=== PATIENT | female | born 1955 | race Caucasian/White ===

== ENCOUNTER 2021-06-14 21:48 | Emergency (ER) | payer MEDICAID ==
[~2021-06-14] VITALS: Ht 154.9 cm; Wt 70.3 kg
--- NOTE | 2021-06-14 22:36 | NUR ---
BIB FAMILY COMPLAINING OF CHRONIC SCIATICA PAIN L . PT TAKES TRAMADOL FOR PAIN AT HOME. STATES SHE IS UNABLE TO AMBULATE DUE TO PAIN. VITAL SIGNS STABLE MD WAS AT BEDSIDE FOR MADHU. Addendum: 06/14/21 at 2305 by KDABBAGHIA PAIN TO L LOWER EXTREMITY PAIN
[2021-06-14] MEDS ORDERED: CARISOPRODOL 350 MG TABLET ONE (22:46)
[2021-06-14] MEDS ORDERED: DEXAMETHASONE SOD PHOSPHATE 10 MG/ML VIAL ONE (22:46)
[2021-06-14] MEDS ORDERED: KETOROLAC TROMETHAMINE INJ 60 MG/2 ML VIAL IM ONE ×2 (22:46→23:00)
[2021-06-14] MEDS ORDERED: CARISOPRODOL 350 MG TABLET PO ONE (23:00)
[2021-06-14] MEDS ORDERED: DEXAMETHASONE SOD PHOSPHATE 4 MG/ML VIAL IM ONE (23:00)
[2021-06-14] MEDS ORDERED: ONDA4TAB5 PO (23:21)
[2021-06-14] MEDS ORDERED: MORPHINE SULFATE INJ 4 MG/ML DISP.SYRIN ONE (23:28)
[2021-06-14] MEDS ORDERED: ONDANSETRON 4 MG TAB.RAPDIS ONE (23:29)
[2021-06-14] MEDS ORDERED: MORPHINE SULFATE INJ 2 MG/ML DISP.SYRIN IM ONE (23:30)
[2021-06-14] MEDS ORDERED: ONDANSETRON 4 MG TAB.RAPDIS SL ONE (23:30)
--- NOTE | 2021-06-15 | NUR ---
CALLED DAUGHTER EB FOR PICKUP
[2021-06-15 00:12] VITALS: BP 134/69
== END 2021-06-15 00:13 | disposition home or self-care (01) ==
LOC: ER 22:08
DX: M54.42 Lumbago with sciatica, left side (principal); Z79.899 Other long term (current) drug therapy
CPT/HCPCS: 96372 ×2; 99284; J1100; J1885; J2270; Q0162